=== PATIENT | male | born 1970 | race Caucasian/White ===

== ENCOUNTER 2016-11-17 21:12 | Emergency (ER) | payer SELFPAY ==
[~2016-11-17] VITALS: Ht 167.6 cm; Wt 72.0 kg
[2016-11-17 21:14] VITALS: BP 192/106; PULSE 81; RESP 16; TEMP 99.7; O2SAT 98
--- NOTE | 2016-11-17 21:34 | PD ---
HPI Chief Complaint: Cold / Flu Symptoms Time Seen by Provider: 21:20 Travel History International Travel<30 days: No Contact w/Intl Traveler<30days: No Traveled to known affect area: No History of Present Illness HPI This is a 46-year-old male who presents for evaluation of 3 separate complaints. For The past week he has had a cough with green sputum production. He's had occasional chills and subjective fevers. Symptoms are constant, no aggravating or relieving factors. In addition the patient has had left calf pain. 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 He now has left calf pain which is exacerbated by walking. In addition the patient complains of left ear pain and bloody discharge. He started having a pressure sensation in his left ear today. He put some [id number]-[id number] cleaning solution in his left ear and later in the day he noticed some bloody discharge from the left ear. He denies any tinnitus. He denies any sore throat, right ear discomfort. He has no other complaints at this time. [facility] Past Medical History Hypertension: Yes Inguinal Hernia: Yes Respiratory: Yes (pneumonia, bronchitis) Social History Alcohol Use: No (rarely) Tobacco Use: Yes (1ppd) Substance Use: No Allergies-Medications (Allergen,Severity, Reaction): Coded Allergies: No Known Allergies (Unverified , 11/17/16) Review of Systems Except as stated in HPI: all other systems reviewed are Neg Physical Exam Narrative GENERAL: This is a well-developed well-nourished male in no acute distress. His vital signs have been reviewed. SKIN: Warm and dry. HEAD: Atraumatic. Normocephalic. EYES: Pupils equal and round. No scleral icterus. No injection or drainage. ENT: No nasal bleeding or discharge. Mucous membranes pink and moist. Examination of left ear reveals some bloody fluid noted in the left ear canal. It is obscuring the view of the left tympanic membrane. Right tympanic membrane appears normal. NECK: Trachea midline. No JVD. CARDIOVASCULAR: Regular rate and rhythm. No murmur appreciated. RESPIRATORY: No accessory muscle use. Clear to auscultation. Breath sounds equal bilaterally. No crackles no wheezing or rhonchi. GASTROINTESTINAL: Abdomen soft, non-tender, nondistended. Hepatic and splenic margins not palpable. MUSCULOSKELETAL: No obvious deformities. There is some tenderness to palpation to left calf musculature. There is no bruising or soft tissue swelling. The Achilles tendon is intact and nontender. Negative Bhagat's. 5 out of 5 muscle strength in dorsi and plantar flexion. Compartments of left calf are soft. NEUROLOGICAL: Awake and alert. No obvious cranial nerve deficits. Motor grossly within normal limits. Normal speech. Data Data Last Documented VS Vital Signs Date Time Temp Pulse Resp B/P Pulse Ox O2 Delivery O2 Flow Rate FiO2 11/17/16 21:31 99 Room Air 11/17/16 21:14 99.7 81 16 192/106 Orders Chest, Single Ap (11/17/16 ) Influenzae A/B Antigen (11/17/16 21:29) MDM Medical Decision Making Medical Screen Exam Complete: Yes Emergency Medical Condition: Yes Medical Record Reviewed: Yes Interpretation(s) CONCLUSION: No acute abnormality is seen. There is a 1.6 cm nodule projecting over the left base. Differential Diagnosis Pneumonia, influenza, bronchitis, otitis media, perforated tympanic membrane, otitis externa, calf strain, calf tear, fibular fracture, Achilles tendon rupture Narrative Course 46-year-old male subjective fevers and productive cough for one week. He has had left calf pain after stepping awkwardly on a roof yesterday. He has had left ear bloody discharge for several hours. Examination is consistent with left calf strain with no evidence of Achilles tendon rupture or bony abnormality or compartment syndrome. He also has some bloody discharge in the left ear canal, obscuring the view of the left tympanic membrane, certainly suggestive of a left otitis media with spontaneous rupture. He does have a low- grade fever. Plan is for chest x-ray and influenza antigen. Influenza antigen is negative. Chest x-ray reveals a 1.6 cm nodule in the left base. The patient was given a copy of his x-ray report and advised to follow- up with primary care physician and have this monitored more closely, possibly outpatient CT imaging of the thorax as he does have a history of tobacco use. He is being discharged with Augmentin and ofloxacin otic solution. Diagnosis Primary Impression: Strain of calf muscle Qualified Code: S86.812A - Strain of calf muscle, left, initial encounter Additional Impressions: Left otitis media with spontaneous rupture of eardrum Bronchitis Additional Instructions: Medication as prescribed. Avoid getting water in left ear canal. Rest the left calf muscle. Ice pack several times a day 10-15 minutes at a time over the next few days. Follow-up in one to 2 weeks with primary care physician. Return for any emergent medical conditions. Med/Other Pt SpecificInfo: Prescription(s) given Scripts Ofloxacin Otic (Floxin Otic)0.3 % Sol10 Drop LEFT EAR DAILY 10 Days Ref 0 Prov:Rafi Raymond MD 11/17/16 Amoxicillin-Clavulanate (Augmentin)875-125 Mg Tab1 Tab PO BID 10 Days Ref 0 Prov:Rafi Raymond MD 11/17/16 Disposition: 01 DISCHARGE HOME Condition: Stable Michael Soler Nov 17, 2016 21:34
--- NOTE | 2016-11-17 22:20 | RADRPT ---
EXAM DATE/TIME: 11/17/2016 21:35 [facility] COMPARISON: No previous studies available for comparison. INDICATIONS : Complains of cough, fever, shortness of breath, blood in left ear. MEDICAL HISTORY : Hypertension. Pneumonia, bronchitis SURGICAL HISTORY : None. ENCOUNTER: Initial ACUITY: 1 week PAIN SCORE: 0/10 LOCATION: Bilateral chest FINDINGS: The heart size is normal. There is a 1.6 cm nodule projecting over the left base. The right lung is c lear. No effusion is seen. CONCLUSION: No acute abnormality is seen. There is a 1.6 cm nodule projecting over the left base. Silvestre White MD on November 17, 2016 at 22:16 Board Certified Radiologist. This report was verified electronically.
[2016-11-17] MEDS ORDERED: AUGM875T3 PO (22:24)
[2016-11-17] MEDS ORDERED: OFLO1SOL LEFT EAR (22:24)
== END 2016-11-17 23:01 | disposition home or self-care (01) ==
LOC: NEPC 21:12
DX: S86.812A Strain of other muscle(s) and tendon(s) at lower leg level, left leg, initial encounter (principal); H66.92 Otitis media, unspecified, left ear; I10 Essential (primary) hypertension; F17.210 Nicotine dependence, cigarettes, uncomplicated; X50.1XXA Overexertion from prolonged static or awkward postures, initial encounter; Y93.H3 Activity, building and construction; Y92.69 Other specified industrial and construction area as the place of occurrence of the external cause; Y99.0 Civilian activity done for income or pay
CPT/HCPCS: 71010; 87804; 99284

== ENCOUNTER 2017-03-09 10:49 | Emergency (ER) | payer OTHER ==
[~2017-03-09 10:49] MED LIST: AUGM875T3 PO; OFLO1SOL LEFT EAR
[2017-03-09 10:51] VITALS: BP 169/104; PULSE 101; RESP 17; TEMP 98.9; O2SAT 99
--- NOTE | 2017-03-09 11:21 | PD ---
HPI Chief Complaint: Skin Problem Time Seen by Provider: 11:12 Travel History International Travel<30 days: No Contact w/Intl Traveler<30days: No Traveled to known affect area: No History of Present Illness HPI 46-year-old male here for evaluation of possible abscess or retained foreign body in the right hand. 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 He denies fever or chills. He reports the swelling in the hand has actually improved since the event. He has full range of motion and normal sensation of all digits. Tetanus immunization is unknown. He reports only mild pain at the site. No alleviating factors. [facility] Past Medical History Medical History: Denies Significant Hx Hypertension: Yes Inguinal Hernia: Yes Respiratory: Yes (pneumonia, bronchitis) Tetanus Vaccination: > 5 Years Past Surgical History Other Surgery: Yes (r inguinal hernia surgery) Social History Alcohol Use: Yes (rarely) Tobacco Use: Yes (1ppd) Substance Use: No Allergies-Medications (Allergen,Severity, Reaction): Coded Allergies: No Known Allergies (Unverified , 11/17/16) Reported Meds & Prescriptions Reported Meds & Active Scripts Active Floxin Otic (Ofloxacin Otic) 0.3 % Erika 10 Drop LEFT EAR DAILY 10 Days Augmentin (Amoxicillin-Clavulanate) 875-125 Mg Tab 1 Tab PO BID 10 Days Review of Systems Except as stated in HPI: all other systems reviewed are Neg General / Constitutional: No: Fever Physical Exam Narrative GENERAL: Well-nourished, well-developed patient. SKIN: Focused skin assessment warm/dry. 1 cm diameter fluctuant area to the proximal/lateral aspect of the second digit. HEAD: Normocephalic. EYES: No scleral icterus. No injection or drainage. CARDIOVASCULAR: Regular rate and rhythm without murmurs, gallops, or rubs. RESPIRATORY: Breath sounds equal bilaterally. No accessory muscle use. MUSCULOSKELETAL: No cyanosis, or edema. Right hand: 1 cm diameter fluctuant area with central scab to the proximal/lateral aspect of the second digit. Mild swelling of the thumb and first digit. Patient is able to fully flex and extend all digits. Brisk cap refill. Data Data Last Documented VS Vital Signs Date Time Temp Pulse Resp B/P (MAP) Pulse Ox O2 Delivery O2 Flow Rate FiO2 03/09/17 10:51 98.9 101 17 169/104 (125) 99 Orders Orders Hand, Complete (Sar4cko) (03/09/17 ) Tetanus/Diphtheria Tox Adult (Tetanus/Di (03/09/17 11:30) Lidocaine 1% Inj (50 Ml) (Xylocaine 1% I (03/09/17 11:30) MDM Medical Decision Making Medical Screen Exam Complete: Yes Emergency Medical Condition: Yes Differential Diagnosis Abscess, cellulitis, retained foreign body Narrative Course 46-year-old male here for evaluation of abscess to the right second digit. Patient sustained a possible Holter injury or abrasion caused by metal delvis material 7 days ago. The area developed a central scab and has slowly increased in size and is tender to touch. He denies fever or chills. He has full range of motion of all digits. On exam he has a small 1 cm fluctuant area to the proximal second digit. X-ray right hand: Procedures Procedure Narrative INCISION AND DRAINAGE OF ABSCESS: The area was prepped and was sterilely draped. A subcutaneous wheal of 1% Xylocaine with a total number [-2] mL was used to anesthetize the area properly. A number 11scalpel was used to make a 0.5 -cm incision across the area of the abscess. The abscess was drained, complex loculations were broken down, and irrigated with normal saline. Cultures were obtained. Quarter inch iodoform packing was placed in the wound. Sterile dressing applied. Patient advised to have packing removed in two days. Diagnosis Primary Impression: Abscess Referrals: [facility] Scripts Cephalexin (Keflex) 500 Mg Cap 500 MG PO Q6H for Infection for 10 Days, #40 CAP 0 Refills Prov: Sherrill Ferguson 03/09/17 Sulfamethoxazole-Trimethoprim (Bactrim DS) 800-160 Mg Tab 1 TAB PO BID for Infection for 10 Days, #20 TAB 0 Refills Prov: Sherrill Ferguson 03/09/17 Disposition: 01 DISCHARGE HOME Condition: Stable Sherrill Ferguson Mar 09, 2017 11:21
[2017-03-09] MEDS ORDERED: LIDOCAINE HCL 1% 50 ML VIAL INFIL ONE (11:30)
[2017-03-09] MEDS ORDERED: TETANUS/DIPHTHERIA TOXOID ADULT 0.5 ML VIAL IM ONE (11:30)
--- NOTE | 2017-03-09 12:45 | RADRPT ---
EXAM DATE/TIME: 03/09/2017 11:53 [facility] COMPARISON: No previous studies available for comparison. INDICATIONS : Hurt right hand delvis 10 days ago, pain between 2nd and 3rd digits. MEDICAL HISTORY : None. SURGICAL HISTORY : None. ENCOUNTER: Initial ACUITY: 1 week PAIN SCORE: 9/10 LOCATION: Right hand FINDINGS: Three view examination of the right hand demonstrates no soft tissue swelling, dislocation, or fractu re. The carpal bones appear intact. The interphalangeal and metacarpophalangeal joints are intact. Bony mineralization is normal. CONCLUSION: No evidence of recent injury. No radiopaque foreign bodies seen. Quoc Sorto MD on March 09, 2017 at 12:42 Board Certified Radiologist. This report was verified electronically.
[2017-03-09] MEDS ORDERED: CEPH-460 PO (12:48)
[2017-03-09] MEDS ORDERED: BACT800T5 PO (12:48)
== END 2017-03-09 13:45 | disposition home or self-care (01) ==
LOC: NEPD 10:49
DX: L02.511 Cutaneous abscess of right hand (principal); Z23 Encounter for immunization; I10 Essential (primary) hypertension; Z87.891 Personal history of nicotine dependence
CPT/HCPCS: 10061; 73130; 90471; 90714

== ENCOUNTER 2017-03-11 08:15 | Inpatient (IN) | payer OTHER ==
[~2017-03-11] VITALS: Ht 172.7 cm; Wt 80.0 kg
[~2017-03-11 08:15] MED LIST changes: +BACT800T5 PO; +CEPH-460 PO
[2017-03-11 08:16] VITALS: BP 163/96; PULSE 86; RESP 16; TEMP 98.5; O2SAT 99
[2017-03-11] MEDS ORDERED: MORPHINE SULFATE 4 MG/ML INJ IV PUSH ONE (08:45)
[2017-03-11] MEDS ORDERED: VANCOMYCIN INJ 1,000 MG in SODIUM CHLOR 0.9% 250 ML INJ 250 ML IV ONE (08:45)
--- NOTE | 2017-03-11 08:45 | PD ---
HPI Chief Complaint: Skin Problem Time Seen by Provider: 08:30 Travel History International Travel<30 days: No Contact w/Intl Traveler<30days: No Traveled to known affect area: No History of Present Illness HPI This is a 46-year-old male with no significant past history, who seen here 2 days ago for a right hand infection, who presents today with worsening pain and swelling of his right hand. Patient was seen 2 days ago had an I and D of a small abscess on his right second volar finger. The patient reports increased swelling and pain since then. He denies any fevers, chills. He states she's been taking antibiotics. He reports now the pain is throbbing and keeping him up at night. PFSH Past Medical History Hypertension: Yes Inguinal Hernia: Yes Respiratory: Yes (pneumonia, bronchitis) Past Surgical History Other Surgery: Yes (r inguinal hernia surgery) Social History Alcohol Use: Yes (rarely) Tobacco Use: Yes (1ppd) Substance Use: No Allergies-Medications (Allergen,Severity, Reaction): Coded Allergies: No Known Allergies (Unverified , 11/17/16) Reported Meds & Prescriptions Reported Meds & Active Scripts Active Bactrim DS (Sulfamethoxazole-Trimethoprim) 800-160 Mg Tab 1 Tab PO BID 10 Days Review of Systems Except as stated in HPI: all other systems reviewed are Neg General / Constitutional: No: Fever, Chills HENT: No: Headaches, Vertigo Cardiovascular: No: Chest Pain or Discomfort, Palpitations Respiratory: No: Cough, Shortness of Breath Gastrointestinal: No: Nausea, Vomiting, Abdominal Pain Musculoskeletal: Positive: Limited ROM, Edema, Pain (right hand second and third finger), Other (redness) Neurologic: No: Weakness, Headache Physical Exam Narrative GENERAL: Well-nourished, well-developed patient. SKIN: Focused skin assessment warm/dry. HEAD: Normocephalic. EYES: No scleral icterus. No injection or drainage. NECK: Supple, trachea midline. CARDIOVASCULAR: Regular rate and rhythm without murmurs, gallops, or rubs. RESPIRATORY: Breath sounds equal bilaterally. No accessory muscle use. GASTROINTESTINAL: Abdomen soft, non-tender, nondistended. MUSCULOSKELETAL: On examination the patient's right hand, patient has significant edema and redness to his right second finger. There is also edema and redness to the lateral volar surface of the right third finger. There is no fluctuation noted. Limited range of motion secondary to pain. NEUROLOGICAL: Awake and alert. Cranial nerves II through XII intact. Motor grossly within normal limits. Five out of 5 muscle strength in all muscle groups. Normal speech. Data Data Last Documented VS Vital Signs Date Time Temp Pulse Resp B/P (MAP) Pulse Ox O2 Delivery O2 Flow Rate FiO2 03/11/17 08:16 98.5 86 16 163/96 (118) 99 Orders Orders Complete Blood Count With Diff (03/11/17 08:35) Basic Metabolic Panel (Bmp) (03/11/17 08:35) Blood Culture (03/11/17 08:35) Iv Access Insert/Monitor (03/11/17 08:35) Vancomycin Inj (Vancomycin Inj) (03/11/17 08:45) Morphine Inj (Morphine Inj) (03/11/17 08:45) Admit To Inpatient (03/11/17 ) Vital Signs (Adult) Q4H (03/11/17 09:14) Activity Oob With Assistance (03/11/17 09:14) Intake + Output SHAJI.QSHIFT (03/11/17 09:14) Diet Regular Basic (03/11/17 Breakfast) Sodium Chlor 0.9% 1000 Ml Inj (Ns 1000 M (03/11/17 11:00) Sodium Chloride 0.9% Flush (Ns Flush) (03/11/17 09:15) Sodium Chloride 0.9% Flush (Ns Flush) (03/11/17 21:00) Acetaminophen (Tylenol) (03/11/17 11:00) Ondansetron Inj (Zofran Inj) (03/11/17 11:00) Basic Metabolic Panel (Bmp) (03/12/17 06:00) Complete Blood Count With Diff (03/12/17 06:00) Case Management Consult (03/11/17 09:14) Zolpidem (Ambien) (03/11/17 11:00) Enoxaparin Inj (Lovenox Inj) (03/11/17 11:00) Scd Bilateral/Knee High SHAJI.BID (03/11/17 09:14) Toby Bilateral/Knee High SHAJI.QSHIFT (03/11/17 09:14) Naloxone Inj (Narcan Inj) (03/11/17 09:15) Docusate Sodium-Senna (Cate-Colace) (03/11/17 21:00) Magnesium Hydroxide Liq (Milk Of Magnesi (03/11/17 10:00) Sennosides (Senokot) (03/11/17 11:00) Bisacodyl Supp (Dulcolax Supp) (03/11/17 11:00) Lactulose Liq (Lactulose Liq) (03/11/17 11:00) Inpatient Certification (03/11/17 ) Acetamin-Hydrocod 325-5 Mg (Addison 5-325 (03/11/17 11:00) Acetamin-Hydrocod 325-10 Mg (Addison 10-32 (03/11/17 11:00) Hydromorphone Pf Inj (Dilaudid Pf Inj) (03/11/17 11:00) Naloxone Inj (Narcan Inj) (03/11/17 09:30) Consult Wound / Ostomy Nurse (03/11/17 ) Vancomycin Consult Pharmacy (Vancomycin (03/11/17 09:30) Admit Order (Ed Use Only) (03/11/17 10:14) Labs Laboratory Tests Test 03/11/17 08:45 03/11/17 10:00 White Blood Count 7.9 TH/MM3 Red Blood Count 5.17 MIL/MM3 Hemoglobin 16.2 GM/DL Hematocrit 46.6 % Mean Corpuscular Volume 90.1 FL Mean Corpuscular Hemoglobin 31.3 PG Mean Corpuscular Hemoglobin Concent 34.7 % Red Cell Distribution Width 13.8 % Platelet Count 183 TH/MM3 Mean Platelet Volume 9.8 FL Neutrophils (%) (Auto) 77.2 % Lymphocytes (%) (Auto) 13.9 % Monocytes (%) (Auto) 7.2 % Eosinophils (%) (Auto) 1.1 % Basophils (%) (Auto) 0.6 % Neutrophils # (Auto) 6.1 TH/MM3 Lymphocytes # (Auto) 1.1 TH/MM3 Monocytes # (Auto) 0.6 TH/MM3 Eosinophils # (Auto) 0.1 TH/MM3 Basophils # (Auto) 0.1 TH/MM3 CBC Comment DIFF FINAL Differential Comment Blood Urea Nitrogen 8 MG/DL Creatinine 1.03 MG/DL Random Glucose 89 MG/DL Calcium Level 8.4 MG/DL Sodium Level 136 MEQ/L Potassium Level 4.3 MEQ/L Chloride Level 105 MEQ/L Carbon Dioxide Level 25.1 MEQ/L Anion Gap 6 MEQ/L Estimat Glomerular Filtration Rate 78 ML/MIN MDM Medical Decision Making Medical Screen Exam Complete: Yes Emergency Medical Condition: Yes Differential Diagnosis Right hand cellulitis, failed outpatient antibiotics versus right hand abscess versus tenosynovitis Narrative Course Mr. Solis is a 46-year-old male who was seen earlier for a right hand infection. He had an abscess that was I and D. The patient was placed on antibiotics. He reports 2 days later after he has worsening pain and redness of his hand. Patient has obvious worsening cellulitis. His failed outpatient antibiotic. He 'll be admitted to the hospital for IVD antibiotics. He's been started on vancomycin 1 g. Blood cultures have been sent. Case was discussed with the [facility] hospitalists who are in agreement. He reports he received a tetanus shot on his last visit 2 days ago. Diagnosis Primary Impression: right hand infection, failed outpatient antibiotics. Admitting Information Admitting Physician Requests: Admit Scripts Oxycodone-Acetaminophen (Oxycodone-Acetaminophen) 5-325 mg Tab 1 TAB PO Q4H Y for Pain, #40 TAB Prov: Dionisio Lynn MD 03/14/17 Zolpidem (Ambien) 5 Mg Tab 5 MG PO HS Y for INSOMNIA, #10 TAB Prov: Dionisio Lynn MD 03/14/17 Lactobacillus Acidophilus (Lactobacillus Acidophilus) 1 Billion Cell Tab 1 TAB PO TIDAC for Nutritional Supplement, #30 TAB 0 Refills Prov: Dionisio Lynn MD 03/14/17 Nicolas Umanzor MD Mar 11, 2017 08:45
[2017-03-11] MEDS ORDERED: NALOXONE HCL 0.4 MG/ML AMP IV PUSH PRN ×2 (09:15→09:30)
[2017-03-11] MEDS ORDERED: SODIUM CHLORIDE 0.9% FLUSH 10 ML FLUSH IV FLUSH PRN (09:15)
[2017-03-11 09:19] LABS: AUTOMATED NEUTROPHIL # 6.1 TH/MM3 (1.8-7.7); BASOPHIL # 0.1 TH/MM3 (0-0.2); BASOPHIL % 0.6 % (0.0-2.0); EOSINOPHIL # 0.1 TH/MM3 (0-0.4); EOSINOPHIL % 1.1 % (0.0-4.0); HEMATOCRIT 46.6 % (39.0-51.0); HEMOGLOBIN 16.2 GM/DL (13.0-17.0); LYMPH % 13.9 % (9.0-44.0); LYMPHOCYTE # 1.1 TH/MM3 (1.0-4.8); MEAN CELL VOLUME 90.1 FL (80.0-100.0); MEAN CORPUSCULAR HEMOGLOBIN 31.3 PG (27.0-34.0); MEAN CORPUSCULAR HGB CONC 34.7 % (32.0-36.0); MEAN PLATELET VOLUME 9.8 FL (7.0-11.0); MONO % 7.2 % (0.0-8.0); MONOCYTE # 0.6 TH/MM3 (0-0.9); NEUT % 77.2 % (16.0-70.0); PLATELET COUNT 183 TH/MM3 (150-450); RED BLOOD COUNT 5.17 MIL/MM3 (4.50-5.90); RED CELL DISTRIBUTION WIDTH 13.8 % (11.6-17.2); WHITE BLOOD COUNT 7.9 TH/MM3 (4.0-11.0)
[2017-03-11] MEDS ORDERED: Vancomycin Consult Pharmacy 1 EA OTHER SCH (09:30)
[2017-03-11] MEDS ORDERED: VANCOMYCIN INJ 1,000 MG in SODIUM CHLOR 0.9% 250 ML INJ 250 ML IV SCH (09:30)
[2017-03-11] MEDS ORDERED: MAGNESIUM HYDROXIDE SUSP 30 ML CUP PO PRN (10:00)
--- NOTE | 2017-03-11 10:28 | HHI.HP ---
[facility] Primary [facility] Physician No Primary Care Physician Admission Diagnosis right hand cellulitis, failed outpatient antibiotics. Diagnoses: Travel History International Travel<30 Days: No Contact w/Intl Traveler <30 Da: No Traveled to Known Affected Are: No History of Present Illness 46 yo male with no significant past history, who was seen here 2 days ago for a right hand infection. The patient presented today with worsening pain and swelling of his right hand. Patient was seen 2 days ago had an I and D of a small abscess on his right second volar finger. The patient reports increased swelling and pain since then. He denies any fevers, chills. He states she's been taking antibiotics. He reports now the pain is throbbing and keeping him up at night. Patient otherwise denies chest pain or sob, no n/v/d/c. No palpitations. No urinary complaints. Review of Systems Except as stated in HPI: all other systems reviewed are Neg Past Family Social History Past Medical History None Past Surgical History Right inguinal hernia repair Reported Medications Reported Meds & Active Scripts Active Keflex (Cephalexin) 500 Mg Cap 500 Mg PO Q6H 10 Days Bactrim DS (Sulfamethoxazole-Trimethoprim) 800-160 Mg Tab 1 Tab PO BID 10 Days Allergies: Coded Allergies: No Known Allergies (Unverified , 11/17/16) Family History Mother HTN, DM, heart disease Social History Tobacco use 1 PPD EtOH use occasionally H/o Marijuana use and speed 1 year ago Physical Exam Vital Signs Vital Signs Date Time Temp Pulse Resp B/P (MAP) Pulse Ox O2 Delivery O2 Flow Rate FiO2 03/11/17 08:16 98.5 86 16 163/96 (118) 99 Physical Exam GENERAL: This is a well-nourished, well-developed patient, in no apparent distress. SKIN: No rashes, ecchymoses or lesions. Cool and dry. HEAD: Atraumatic. Normocephalic. No temporal or scalp tenderness. EYES: Pupils equal round and reactive. Extraocular motions intact. No scleral icterus. No injection or drainage. ENT: Nose without bleeding, purulent drainage or septal hematoma. Throat without erythema, tonsillar hypertrophy or exudate. Uvula midline. Airway patent. NECK: Trachea midline. No JVD or lymphadenopathy. Supple, nontender, no meningeal signs. CARDIOVASCULAR: Regular rate and rhythm without murmurs, gallops, or rubs. RESPIRATORY: Clear to auscultation. Breath sounds equal bilaterally. No wheezes , rales, or rhonchi. GASTROINTESTINAL: Abdomen soft, non-tender, nondistended. No hepato-splenomegaly , or palpable masses. No guarding. MUSCULOSKELETAL: Right hand, patient has significant edema and redness to his right second finger with edema and decreased ROM. There is also edema and redness to the lateral volar surface of the right third finger. There is no fluctuation noted. Limited range of motion secondary to pain. No calf tenderness. Negative Homans sign bilaterally. NEUROLOGICAL: Awake and alert. Cranial nerves II through XII intact. Motor and sensory grossly within normal limits. Five out of 5 muscle strength in all muscle groups. Normal speech. Laboratory Laboratory Tests Test 03/11/17 08:45 03/11/17 10:00 White Blood Count 7.9 Red Blood Count 5.17 Hemoglobin 16.2 Hematocrit 46.6 Mean Corpuscular Volume 90.1 Mean Corpuscular Hemoglobin 31.3 Mean Corpuscular Hemoglobin Concent 34.7 Red Cell Distribution Width 13.8 Platelet Count 183 Mean Platelet Volume 9.8 Neutrophils (%) (Auto) 77.2 Lymphocytes (%) (Auto) 13.9 Monocytes (%) (Auto) 7.2 Eosinophils (%) (Auto) 1.1 Basophils (%) (Auto) 0.6 Neutrophils # (Auto) 6.1 Lymphocytes # (Auto) 1.1 Monocytes # (Auto) 0.6 Eosinophils # (Auto) 0.1 Basophils # (Auto) 0.1 CBC Comment DIFF FINAL Differential Comment Date/Time Source Procedure Growth Status 03/11/17 08:45 Blood Peripheral Aerobic Blood Culture Pending Received 03/11/17 08:45 Blood Peripheral Anaerobic Blood Culture Pending Received Result Diagram: 03/11/1745 Caprini VTE Risk Assessment Caprini VTE Risk Assessment: Mod/High Risk (score >= 2) Caprini Risk Assessment Model Point Value = 1 Point Value = 2 Point Value = 3 Point Value = 5 Age 41-60 Minor surgery BMI > 25 kg/m2 Swollen legs Varicose veins or History of unexplained or recurrent spontaneous Oral contraceptives or hormone replacement Sepsis (< 1 month) Serious lung disease, including pneumonia (< 1 month) Abnormal pulmonary function Acute myocardial infarction Congestive heart failure (< 1 month) History of inflammatory bowel disease Medical patient at bed rest Age 61-74 Arthroscopic surgery Major open surgery (> 45 min) Laparoscopic surgery (> 45 min) Malignancy Confined to bed (> 72 hours) Immobilizing plaster cast Central venous access Age >= 75 History of VTE Family history of VTE Factor V Leiden Prothrombin [id number] Lupus anticoagulant Anticardiolipin antibodies Elevated serum homocysteine Heparin-induced thrombocytopenia Other congenital or acquired thrombophilia Stroke (< 1 month) Elective arthroplasty Hip, pelvis, or leg fracture Acute spinal cord injury (< 1 month) Prophylaxis Regimen Total Risk Factor Score Risk Level Prophylaxis Regimen 0-1 Low Early ambulation 2 Moderate Order ONE of the following: *Sequential Compression Device (SCD) *Heparin 5000 units SQ BID 3-4 Higher Order ONE of the following medications: *Heparin 5000 units SQ TID *Enoxaparin/Lovenox 40 mg SQ daily (WT < 150 kg, CrCl > 30 mL/min) *Enoxaparin/Lovenox 30 mg SQ daily (WT < 150 kg, CrCl > 10-29 mL/min) *Enoxaparin/Lovenox 30 mg SQ BID (WT < 150 kg, CrCl > 30 mL/min) AND/OR *Sequential Compression Device (SCD) 5 or more Highest Order ONE of the following medications: *Heparin 5000 units SQ TID (Preferred with Epidurals) *Enoxaparin/Lovenox 40 mg SQ daily (WT < 150 kg, CrCl > 30 mL/min) *Enoxaparin/Lovenox 30 mg SQ daily (WT < 150 kg, CrCl > 10-29 mL/min) *Enoxaparin/Lovenox 30 mg SQ BID (WT < 150 kg, CrCl > 30 mL/min) AND *Sequential Compression Device (SCD) Assessment and Plan Assessment and Plan Right hand cellulitis, failed outpatient antibiotics vs tenosynovitis Patient had I&D while in the ED, however no cultures taken Blood cx so far negative Failed OP treatment. Will give vancomycin IV bid, consult pharmacy to follow levels Will ask hand surgeon for eval as patient with decreased rom and also pain DVT ppx lovenox, scd/teds Discussed Condition With Patient, nurse, ED physician Dr Umanzor Physician Certification 2 Midnight Certification Type: Admission for Inpatient Services Order for Inpatient Services The services are ordered in accordance with Medicare regulations or non- Medicare payer requirements, as applicable. In the case of services not specified as inpatient-only, they are appropriately provided as inpatient services in accordance with the 2-midnight benchmark. Estimated LOS (days): 3 days is the estimated time the patient will need to remain in the hospital, assuming treatment plan goals are met and no additional complications. Post-Hospital Plan: Home Heather Sena MD Mar 11, 2017 10:28
[2017-03-11 10:50] LABS: BICARBONATE 25.1 MEQ/L (21.0-32.0); CALCIUM 8.4 MG/DL (8.5-10.1); CREATININE 1.03 MG/DL (0.60-1.30)
[2017-03-11 11:00] VITALS: BP 141/91; PULSE 73; RESP 17; O2SAT 96
[2017-03-11] MEDS ORDERED: ONDANSETRON HCL 4 MG/2 ML VIAL IVP PRN (11:00)
[2017-03-11] MEDS ORDERED: SENNOSIDES 8.6 MG TAB PO PRN (11:00)
[2017-03-11] MEDS ORDERED: LACTULOSE SYRUP 20 GM/30 ML CUP PO PRN (11:00)
[2017-03-11] MEDS ORDERED: ACETAMINOPHEN/HYDROcodone 325 MG/5 MG TAB PO PRN (11:00)
[2017-03-11] MEDS ORDERED: ACETAMINOPHEN 325 MG TAB PO PRN (11:00)
[2017-03-11] MEDS ORDERED: BISACODYL 10 MG SUPP RECTAL PRN (11:00)
[2017-03-11] MEDS ORDERED: ZOLPIDEM TARTRATE 5 MG TAB PO PRN (11:00)
[2017-03-11] MEDS: ENOXAPARIN SODIUM 40 MG/0.4 ML SYRINGE SQ SCH (11:30)
[2017-03-11] MEDS: HYDROmorphone HCL PF 1 MG/ML VIAL IV PUSH PRN ×2 (11:30→17:25)
[2017-03-11] MEDS: SODIUM CHLOR 0.9% 1000 ML INJ 1,000 ML IV SCH ×2 (11:30→21:36)
[2017-03-11] MEDS ORDERED: MIDAZOLAM HCL 2 MG/2 ML VIAL IV ONE (13:25)
[2017-03-11] MEDS ORDERED: DEXAMETHASONE SOD PHOS 4 MG/ML VIAL IV ONE (13:25)
[2017-03-11] MEDS ORDERED: ONDANSETRON HCL 4 MG/2 ML VIAL IV PUSH ONE (13:25)
[2017-03-11] MEDS ORDERED: PROPOFOL 200 MG/20 ML AMP IV ONE (13:25)
[2017-03-11] MEDS ORDERED: LIDOCAINE HCL 1% PF 5 ML AMPULE OTHER ONE (13:25)
[2017-03-11] MEDS ORDERED: SUCCINYLCHOLINE CHLORIDE 100 MG/5 ML SYRINGE IV PUSH ONE (13:25)
[2017-03-11 14:38] VITALS: BP 135/81; PULSE 72; RESP 16; O2SAT 98
[2017-03-11] MEDS: ACETAMINOPHEN/HYDROcodone 325 MG/10 MG TAB PO PRN ×2 (14:43→21:32)
[2017-03-11 15:05] VITALS: BP 164/87; PULSE 69; RESP 19; TEMP 98.3; O2SAT 97
[2017-03-11 17:25] VITALS: BP 167/96; PULSE 69; RESP 18; TEMP 98.4; O2SAT 96
[2017-03-11] MEDS ORDERED: ACETAMINOPHEN 1000 MG/100 ML 100 ML IV ONE (17:28)
[2017-03-11] MEDS ORDERED: NICOTINE 21 MG/24 HR PATCH T-DERMAL ONE (17:30)
[2017-03-11] MEDS ORDERED: BUPIVACAINE HCL PF 0.5% 30 ML VIAL ONE (17:31)
[2017-03-11] MEDS ORDERED: LIDOCAINE HCL 2% 50 ML VIAL ONE (17:31)
[2017-03-11] MEDS ORDERED: PANTOPRAZOLE SODIUM 40 MG VIAL ONE (17:45)
[2017-03-11] MEDS: VANCOMYCIN INJ 1,250 MG in SODIUM CHLOR 0.9% 250 ML INJ 250 ML IV SCH (17:55)
[2017-03-11] MEDS ORDERED: *HYDROmorphone PF 1 MG VIAL PERIprocedural Use ONLY ONE ×2 (18:45→18:58)
[2017-03-11] MEDS ORDERED: *ENALAPRILAT 1.25 MG/ML VIAL PERIprocedural Use ONLY ONE (19:15)
[2017-03-11] MEDS ORDERED: DO NOT ADM ANY ANTICOAGULANT DRUGS PRN (19:30)
--- NOTE | 2017-03-11 19:33 | MB ---
cc: CURLY BOLAND III, M.D. DATE OF CONSULTATION 03/11/2017 HISTORY OF PRESENT ILLNESS The patient is a 46-year-old male just admitted through the emergency room who was seen here 2 days ago for a limited I&D of the small abscess on his right second finger which worsened and he came back today. PAST MEDICAL HISTORY Hypertension. PAST SURGICAL HISTORY Inguinal hernia repair. SOCIAL HISTORY Occasional alcohol use. He smokes one-pack per day. ALLERGIES No known drug allergies. MEDICATIONS 1. Keflex. 2. Bactrim. 3. Augmentin. REVIEW OF SYSTEMS The patient is not complaining of any headaches, double or blurry vision. He is not complaining of any coughing, wheezing or shortness of breath. He is not complaining of any chest pain or palpitations. He is not complaining of any nausea, vomiting, abdominal pain. He is not complaining of any burning, frequency or urgency with urination. He is not complaining of any weakness or headaches. He is not complaining of any spine, neck or back pain. He is not complaining of any night sweats, fevers or chills. He is not complaining of any lesions, rashes or eruptions on his skin except for on his fingers on his right hand. LABORATORY FINDINGS Labs were performed. White blood cell count 7.9 thousand, hemoglobin 16.2 gm/dl, platelet count 183,000. He did not have cultures done the other day when the I&D was performed, apparently. PHYSICAL EXAMINATION GENERAL: He is well-developed, well-nourished, no apparent distress. Patient is awake, alert, oriented x3. He is in no apparent distress. He is very pleasant, lying comfortably in his bed. VITAL SIGNS: Temperature is 98.3, blood pressure 164/87, heart rate 69, respiratory rate 19, pulse ox 97% on room air. DIRECTED EXAMINATION: Examination of the right hand reveals full active range of motion with the exception of the index and middle fingers. The index finger has an obvious abscess in the proximal phalanx radial side with an eschar from the previous I&D. The middle finger has a smaller abscess distally also on the radial side with a small pustule forming. All musculotendinous units appear to be intact. The capillary refill is less than 2 seconds on all fingertips. The fingers and __, and the forearm and arm are all soft. Palpable radial pulse. No epitrochlear or axillary adenopathy palpable. IMPRESSION Right index and middle finger abscesses. PLAN The plan is to go to the operating room tonight for incision and drainage of abscesses in the index and middle fingers. The patient understands he ___ open wound and he agrees and requests to proceed. MD JARAD Valentin III/INA /5:03 PM /7:13 PM
[2017-03-11 20:00] VITALS: BP 171/92; PULSE 72; RESP 20; TEMP 97.5; O2SAT 95
[2017-03-11] MEDS: SODIUM CHLORIDE 0.9% FLUSH 10 ML FLUSH IV FLUSH SCH (21:30)
[2017-03-11] MEDS: DOCUSATE SODIUM 50 MG/SENNA 8.6 MG TAB PO SCH (21:32)
[2017-03-12] VITALS (8 sets, daily range): BP systolic 146–163; BP diastolic 81–91; PULSE 64–81; RESP 18–20; TEMP 96.9–98.3; O2SAT 95–96
[2017-03-12] MEDS: HYDROmorphone HCL PF 1 MG/ML VIAL IV PUSH PRN ×4 (00:51→20:37)
[2017-03-12] MEDS: VANCOMYCIN INJ 1,250 MG in SODIUM CHLOR 0.9% 250 ML INJ 250 ML IV SCH ×2 (05:54→17:40)
[2017-03-12] MEDS: SODIUM CHLOR 0.9% 1000 ML INJ 1,000 ML IV SCH ×3 (05:54→20:39)
[2017-03-12 05:56] LABS: AUTOMATED NEUTROPHIL # 8.4 TH/MM3 (1.8-7.7); BASOPHIL % 0.2 % (0.0-2.0); HEMOGLOBIN 15.1 GM/DL (13.0-17.0); LYMPH % 8.4 % (9.0-44.0); LYMPHOCYTE # 0.8 TH/MM3 (1.0-4.8); MEAN CELL VOLUME 90.4 FL (80.0-100.0); MEAN CORPUSCULAR HEMOGLOBIN 31.1 PG (27.0-34.0); MEAN CORPUSCULAR HGB CONC 34.4 % (32.0-36.0); MEAN PLATELET VOLUME 10.3 FL (7.0-11.0); MONO % 2.4 % (0.0-8.0); MONOCYTE # 0.2 TH/MM3 (0-0.9); PLATELET COUNT 183 TH/MM3 (150-450); RED BLOOD COUNT 4.87 MIL/MM3 (4.50-5.90); RED CELL DISTRIBUTION WIDTH 13.6 % (11.6-17.2); WHITE BLOOD COUNT 9.5 TH/MM3 (4.0-11.0)
[2017-03-12 06:23] LABS: BICARBONATE 23.4 MEQ/L (21.0-32.0); CALCIUM 9.1 MG/DL (8.5-10.1); CREATININE 0.85 MG/DL (0.60-1.30)
[2017-03-12] MEDS: ACETAMINOPHEN/HYDROcodone 325 MG/10 MG TAB PO PRN (06:51)
--- NOTE | 2017-03-12 08:44 | PD.WCN.NOT ---
Wound Consult Additional Information: Patient not seen for wound management to R hand. Doctor Rosemarie, Hand surgeon performed I&D of abscess wounds to R hand and has written dressing orders.Please defer to Hand surgeon for additional orders.Inpatient wound care is signing off. Elinor Spicer [facility] Mar 12, 2017 08:44
--- NOTE | 2017-03-12 08:44 | PD.WCN.NOT ---
Wound Consult Additional Information: Patient not seen for wound management to R hand. Doctor Rosemarie, Hand surgeon performed I&D of abscess wounds to R hand and has written dressing orders.Please defer to Hand surgeon for additional orders.Inpatient wound care is signing off. Elinor Spicer [facility] Mar 12, 2017 08:44
--- NOTE | 2017-03-12 08:44 | PD.WCN.NOT ---
Wound Consult Additional Information: Patient not seen for wound management to R hand. Doctor Rosemarie, Hand surgeon performed I&D of abscess wounds to R hand and has written dressing orders.Please defer to Hand surgeon for additional orders.Inpatient wound care is signing off. [facility] Mar 12, 2017 08:44
[2017-03-12] MEDS: REMOVE OLD PATCH T-DERMAL SCH (09:00)
[2017-03-12] MEDS: SODIUM CHLORIDE 0.9% FLUSH 10 ML FLUSH IV FLUSH SCH ×2 (09:00→20:38)
--- NOTE | 2017-03-12 09:27 | MP ---
cc: SEBAS HOUSTON III, M.D. DATE OF SURGERY 03/11/2017 PREOPERATIVE DIAGNOSIS Right index and middle finger abscesses deep. PROCEDURE 1. Right index finger incision and drainage. 2. Right middle finger incision and drainage. SURGEON Sebas Houston III, MD PROCEDURE NOTE The patient was brought to the operating room, placed supine on the operating table. After the correct site and side of surgery were verified by members of each team in the room multiple times including the patient and myself and after preoperative markings and preoperative written consent were verified by everyone and after adequate preoperative time-out was performed to everyone's satisfaction and after adequate general anesthesia had been achieved, the right upper extremity was prepped and draped in the traditional sterile surgical fashion. A 50/50 mixture of 2% plain lidocaine and 0.5% plain Marcaine was infiltrated at the metacarpal level to provide for index and middle finger radial sided digital blocks. The limb was elevated and pressure was held on the brachial artery for a minute and the highly placed well-padded axillary tourniquet was inflated to 200 mmHg for a total of 7 minutes. The eschar on the index finger was debrided and probed and a large amount of purulent fluid erupted. An incision in the skin was then made in a Cris fashion over to the opposite side of the fingers on the volar surface and the abscess cavity was entered. It was superficial to the neurovascular bundles as well as the flexor tendon sheath. It did extend 3 mm proximal to the MCP flexion crease. The infected and necrotic tissue was debrided sharply and all the extent of the abscess cavity was probed in all directions. Thorough irrigation with a liters worth of antiseptic saline was then used and all tissues were cleaned and viable without any grossly infected or necrotic tissue. Attention was then paid to the middle finger where a small pustule erupting was probed and found to track almost a centimeter across the finger at the middle phalangeal level. A small 1 cm incision was made to enhance exposure and this cavity was probed and then a separate culture was obtained, as well and the necrotic soft tissue was sharply debrided. The wounds were thoroughly irrigated and a one-quarter inch of Iodoform packing was applied. The axillary tourniquet was released and the hand and all the fingers including the index, middle fingers became immediately soft, pink, and warm and had brisk capillary refill of less than two seconds. There was no active bleeding. A bulky soft dressing was applied. The patient was awakened from anesthesia and transported to the Post Anesthesia Care Unit awake and in stable condition at the end of the case. The sponge, needle and instrument counts were correct at the end of the case as reported by nurses in the room. MD JARAD Valentin III/RAFAEL /6:42 PM /9:12 AM
[2017-03-12] MEDS: DOCUSATE SODIUM 50 MG/SENNA 8.6 MG TAB PO SCH ×2 (09:56→20:37)
[2017-03-12] MEDS: NICOTINE 21 MG/24 HR PATCH T-DERMAL SCH (09:56)
[2017-03-12] MEDS ORDERED: PNEUMOCOCCAL POLYVALENT INJ 25 MCG/0.5 ML SYR IM ONE (10:00)
[2017-03-12] MEDS ORDERED: INFLUENZA VIRUS VACCINE (QUADRIVALENT) 0.5 ML SYR IM ONE (10:00)
[2017-03-12] MEDS ORDERED: oxyCODONE/ACETAMINOPHEN 5 MG/325 MG TAB PO PRN (10:00)
[2017-03-12] MEDS: ENOXAPARIN SODIUM 40 MG/0.4 ML SYRINGE SQ SCH (10:27)
[2017-03-12] MEDS: oxyCODONE/ACETAMINOPHEN 10 MG/325 MG TAB PO PRN ×3 (12:05→21:47)
--- NOTE | 2017-03-12 13:28 | HHI.PR ---
Subjective Remarks Pain control with [place]. Cultures have resulted staph aureus thus far. Patient is status post incision, drainage, and debridement of hand abscess yesterday. Objective Vital Signs Date Time Temp Pulse Resp B/P (MAP) Pulse Ox O2 Delivery O2 Flow Rate FiO2 03/12/17 08:00 96.9 81 18 163/91 (115) 96 03/12/17 07:15 95 21 03/12/17 04:00 96.9 64 20 147/86 (106) 96 03/12/17 00:00 98.2 74 20 146/82 (103) 96 03/11/17 20:00 97.5 72 20 171/92 (118) 95 03/11/17 19:40 66 14 177/88 (117) 95 Room Air 03/11/17 19:30 60 14 190/107 (134) 97 Room Air 03/11/17 19:28 16 03/11/17 19:15 60 14 189/108 (135) 96 Room Air 03/11/17 19:15 16 03/11/17 19:00 68 14 172/106 (128) 97 Room Air 03/11/17 18:43 98.8 72 14 175/88 (117) 100 Nasal Cannula 2 03/11/17 17:25 98.4 69 18 167/96 (119) 96 03/11/17 15:05 98.3 69 19 164/87 (112) 97 03/11/17 14:38 72 16 135/81 (99) 98 Room Air I/O 03/11/17 03/11/17 03/11/17 03/12/17 03/12/17 03/12/17 07:00 15:00 23:00 07:00 15:00 23:00 Intake Total 250 ml 1240 ml 1000 ml 639 ml Output Total 855 ml Balance 250 ml 385 ml 1000 ml 639 ml Intake Oral 240 ml 120 ml IV Total 250 ml 1000 ml 519 ml Other 1000 ml Output Urine Total 850 ml Estimated Blood Loss 5 ml # Voids 3 Result Diagram: 03/12/1731 03/12/1732 Objective Remarks GENERAL: NAD, A&Ox3 HEAD: Normocephalic. NECK: Supple, trachea midline. No lymphadenopathy. EYES: No scleral icterus. No injection or drainage. CARDIOVASCULAR: Regular rate and rhythm without murmurs, gallops, or rubs. RESPIRATORY: Breath sounds equal bilaterally. No accessory muscle use. GASTROINTESTINAL: Abdomen soft, non-tender, nondistended. MUSCULOSKELETAL: No cyanosis, or edema. Right hand is bandaged and elevated SKIN: Warm and dry. NEURO: No focal neurological deficitis. A/P Problem List: (1) Abscess of right hand ICD Code: L02.511 - Cutaneous abscess of right hand Assessment and Plan Assessment and Plan 46-year-old male admitted secondary to right hand infection Right hand cellulitis Right hand abscess tenosynovitis failed outpatient antibiotics Continue vancomycin And surgeon following Blood cultures are growing staph aureus When necessary Percocet for pain DVT prophylaxis Lovenox and SCDs Dionisio Lynn MD Mar 12, 2017 13:28
--- NOTE | 2017-03-12 16:17 | HHI.PR ---
Subjective Remarks No new complaints. He started the dressing changes today with the packing changes as well by the nurse Objective Vital Signs Date Time Temp Pulse Resp B/P (MAP) Pulse Ox O2 Delivery O2 Flow Rate FiO2 03/12/17 12:00 97.3 74 18 152/81 (104) 95 03/12/17 08:00 96.9 81 18 163/91 (115) 96 03/12/17 07:15 95 21 03/12/17 04:00 96.9 64 20 147/86 (106) 96 03/12/17 00:00 98.2 74 20 146/82 (103) 96 03/11/17 20:00 97.5 72 20 171/92 (118) 95 03/11/17 19:40 66 14 177/88 (117) 95 Room Air 03/11/17 19:30 60 14 190/107 (134) 97 Room Air 03/11/17 19:28 16 03/11/17 19:15 60 14 189/108 (135) 96 Room Air 03/11/17 19:15 16 03/11/17 19:00 68 14 172/106 (128) 97 Room Air 03/11/17 18:43 98.8 72 14 175/88 (117) 100 Nasal Cannula 2 03/11/17 17:25 98.4 69 18 167/96 (119) 96 I/O 03/11/17 03/11/17 03/11/17 03/12/17 03/12/17 03/12/17 07:00 15:00 23:00 07:00 15:00 23:00 Intake Total 250 ml 1240 ml 1000 ml 639 ml Output Total 855 ml Balance 250 ml 385 ml 1000 ml 639 ml Intake Oral 240 ml 120 ml IV Total 250 ml 1000 ml 519 ml Other 1000 ml Output Urine Total 850 ml Estimated Blood Loss 5 ml # Voids 3 Result Diagram: 03/12/17 0531 03/12/17 0532 Objective Remarks Examination right third and fourth fingers reveals much less swelling and edema redness. No fluctuance. Almost full active range of motion. No further drainage. Capillary refills less than 2 seconds in all fingertips Assessment and Plan Problem List: (1) Abscess of right hand ICD Codes: L02.511 - Cutaneous abscess of right hand Plan: Begin 3 times a day dressing and packing changes, already in place Okay for discharge from my standpoint. I will follow-up on the cultures. He can follow-up with me or his primary doctor and weeks. Okay to wash and dry his hands with soap and water or take a shower. Sebas Houston III, MD Mar 12, 2017 16:17
[2017-03-13] VITALS (7 sets, daily range): BP systolic 141–162; BP diastolic 81–96; PULSE 69–88; RESP 16–25; TEMP 98.2–99.1; O2SAT 93–98
[2017-03-13] MEDS: HYDROmorphone HCL PF 1 MG/ML VIAL IV PUSH PRN ×5 (01:05→20:20)
[2017-03-13] MEDS: oxyCODONE/ACETAMINOPHEN 10 MG/325 MG TAB PO PRN ×4 (04:22→18:38)
[2017-03-13] MEDS ORDERED: PHARMACY ORDERED LAB ONE (05:45)
[2017-03-13] MEDS: VANCOMYCIN INJ 1,250 MG in SODIUM CHLOR 0.9% 250 ML INJ 250 ML IV SCH ×2 (07:29→17:40)
[2017-03-13] MEDS: DOCUSATE SODIUM 50 MG/SENNA 8.6 MG TAB PO SCH ×2 (07:59→20:19)
[2017-03-13] MEDS: NICOTINE 21 MG/24 HR PATCH T-DERMAL SCH (07:59)
[2017-03-13] MEDS: REMOVE OLD PATCH T-DERMAL SCH (08:00)
[2017-03-13] MEDS: SODIUM CHLORIDE 0.9% FLUSH 10 ML FLUSH IV FLUSH SCH ×2 (08:00→20:04)
[2017-03-13] MEDS: ENOXAPARIN SODIUM 40 MG/0.4 ML SYRINGE SQ SCH (09:59)
[2017-03-13] MEDS: SODIUM CHLOR 0.9% 1000 ML INJ 1,000 ML IV SCH (13:00)
--- NOTE | 2017-03-13 14:34 | HHI.PR ---
Subjective Remarks Pain control not yet adequate. Patient needing breakthrough IV treatments for pain control. He states today that he would be unable to do the dressing changes himself due to pain. Objective Vital Signs Date Time Temp Pulse Resp B/P (MAP) Pulse Ox O2 Delivery O2 Flow Rate FiO2 03/13/17 12:00 98.2 74 17 150/95 (113) 98 03/13/17 08:00 98.9 75 16 148/88 (108) 93 03/13/17 04:00 98.5 80 20 141/81 (101) 96 03/13/17 00:00 98.3 69 20 162/94 (116) 98 03/12/17 20:00 98.3 74 20 161/87 (111) 96 03/12/17 18:01 95 21 03/12/17 16:00 97.5 81 19 159/87 (111) 95 I/O 03/12/17 03/12/17 03/12/17 03/13/17 03/13/17 03/13/17 07:00 15:00 23:00 07:00 15:00 23:00 Intake Total 1000 ml 639 ml 1300 ml 1176 ml Output Total 1200 ml Balance 1000 ml 639 ml 100 ml 1176 ml Intake Oral 120 ml 1300 ml 240 ml IV Total 1000 ml 519 ml 936 ml Output Urine Total 1200 ml # Voids 3 3 # Bowel Movements 1 Result Diagram: 03/12/17 0531 03/12/17 0532 Objective Remarks GENERAL: NAD, A&Ox3 HEAD: Normocephalic. NECK: Supple, trachea midline. No lymphadenopathy. EYES: No scleral icterus. No injection or drainage. CARDIOVASCULAR: Regular rate and rhythm without murmurs, gallops, or rubs. RESPIRATORY: Breath sounds equal bilaterally. No accessory muscle use. GASTROINTESTINAL: Abdomen soft, non-tender, nondistended. MUSCULOSKELETAL: No cyanosis, or edema. Right hand is bandaged and elevated SKIN: Warm and dry. NEURO: No focal neurological deficitis. A/P Problem List: (1) Abscess of right hand ICD Code: L02.511 - Cutaneous abscess of right hand Assessment and Plan Assessment and Plan 46-year-old male admitted secondary to right hand infection. Monitor for improved pain control on by mouth Percocet. Arranging home health for dressing changes and packing. Plan for discharge tomorrow. Right hand cellulitis Right hand abscess tenosynovitis failed outpatient antibiotics Continue vancomycin And surgeon following Blood cultures are growing staph aureus When necessary Percocet for pain DVT prophylaxis Lovedarbyx and EMILYs Dionisio Lynn MD Mar 13, 2017 14:34
[2017-03-14] VITALS: BP 143/75; PULSE 67; RESP 21; TEMP 98.7; O2SAT 96
[2017-03-14] MEDS: SODIUM CHLOR 0.9% 1000 ML INJ 1,000 ML IV SCH ×2 (00:12→09:00)
[2017-03-14] MEDS: HYDROmorphone HCL PF 1 MG/ML VIAL IV PUSH PRN ×2 (00:13→05:01)
[2017-03-14] MEDS: oxyCODONE/ACETAMINOPHEN 10 MG/325 MG TAB PO PRN ×3 (03:40→13:14)
[2017-03-14] MEDS: VANCOMYCIN INJ 1,250 MG in SODIUM CHLOR 0.9% 250 ML INJ 250 ML IV SCH (04:59)
[2017-03-14 08:00] VITALS: BP 141/83; PULSE 69; RESP 16; TEMP 97.2; O2SAT 95
[2017-03-14] MEDS: REMOVE OLD PATCH T-DERMAL SCH (09:00)
[2017-03-14] MEDS: DOCUSATE SODIUM 50 MG/SENNA 8.6 MG TAB PO SCH (09:16)
[2017-03-14] MEDS: NICOTINE 21 MG/24 HR PATCH T-DERMAL SCH (09:17)
[2017-03-14] MEDS: SODIUM CHLORIDE 0.9% FLUSH 10 ML FLUSH IV FLUSH SCH (09:17)
[2017-03-14] MEDS: ENOXAPARIN SODIUM 40 MG/0.4 ML SYRINGE SQ SCH (09:17)
[2017-03-14] MEDS ORDERED: AMBI5TAB PO (11:58)
[2017-03-14] MEDS ORDERED: OXYC1TAB63 PO (11:58)
[2017-03-14] MEDS ORDERED: LACTTAB8 PO (11:58)
[2017-03-14 12:00] VITALS: BP 139/87; PULSE 81; RESP 18; TEMP 98.4; O2SAT 96
--- NOTE | 2017-03-14 12:05 | HHI.FF ---
Face to Face Verification Diagnosis: (1) Abscess of right hand Home Health Nursing Order: Wound care and dressing changes Instructions: Wound evaluation and witnessed dressing change (patient instructed and able to change dressings himself, TID) I have seen patient Alan Acevedo Solis on 03/14/17. My clinical findings support the need for the requested home health care services because: Infection w/ risk of complications I certify that my clinical findings support that this patient is homebound because: Unable to use public transportation Dionisio Lynn MD Mar 14, 2017 12:05
--- NOTE | 2017-03-14 12:46 | HHI.DS ---
Discharge Summary Admission Date Mar 11, 2017 at 10:18 Discharge Date: Mar 14, 2017 Admitting Diagnosis right hand cellulitis, failed outpatient antibiotics. (1) Abscess of right hand ICD Code: L02.511 - Cutaneous abscess of right hand Procedures Incision, drainage, and debridement of right hand abscess Brief History - From Admission 46 yo male with no significant past history, who was seen here 2 days ago for a right hand infection. The patient presented today with worsening pain and swelling of his right hand. Patient was seen 2 days ago had an I and D of a small abscess on his right second volar finger. The patient reports increased swelling and pain since then. He denies any fevers, chills. He states she's been taking antibiotics. He reports now the pain is throbbing and keeping him up at night. Patient otherwise denies chest pain or sob, no n/v/d/c. No palpitations. No urinary complaints. CBC/BMP: 03/12/17 0531 03/12/17 0532 Significant Findings Laboratory Tests Test 03/12/17 05:31 03/12/17 05:32 03/13/17 06:25 Neutrophils (%) (Auto) 89.0 % (16.0-70.0) Lymphocytes (%) (Auto) 8.4 % (9.0-44.0) Neutrophils # (Auto) 8.4 TH/MM3 (1.8-7.7) Lymphocytes # (Auto) 0.8 TH/MM3 (1.0-4.8) Random Glucose 126 MG/DL (74-106) Sodium Level 135 MEQ/L (136-145) Vancomycin Level Trough 11.9 MCG/ML (5.0-10.0) Hospital Course Mr. Solis is a 46-year-old male. He was admitted secondary to right hand abscess. This wasn't present in outpatient treatment failure. Failure appears to be related to abscess hand rather than resistance as cultures have grown Bactrim sensitive staph aureus. He had previously been on Bactrim and Keflex. He is now post op and able to do his own dressing changes. Final cultures have resulted. Medically stable for discharge to home with home health to assist in dressing changes. Discharge home today. Pt Condition on Discharge: Stable Discharge Disposition: Disch w/ Home Health Serv Discharge Time: <= 30 minutes Discharge Instructions DIET: Follow Instructions for: As Tolerated, No Restrictions Activities you can perform: Regular-No Restrictions Follow up Referrals: Hand Surgery - 1 Week with Sebas Houston III, MD PCP Follow-up - 1 Week New Medications: Lactobacillus Acidophilus (Lactobacillus Acidophilus) 1 Billion Cell Tab 1 TAB PO TIDAC for Nutritional Supplement, #30 TAB 0 Refills Oxycodone-Acetaminophen (Oxycodone-Acetaminophen) 5-325 mg Tab 1 TAB PO Q4H PRN for Pain, #40 TAB Zolpidem (Ambien) 5 Mg Tab 5 MG PO HS PRN for INSOMNIA, #10 TAB Continued Medications: Sulfamethoxazole-Trimethoprim (Bactrim DS) 800-160 Mg Tab 1 TAB PO BID for Infection for 10 Days, #20 TAB 0 Refills Discontinued Medications: Cephalexin (Keflex) 500 Mg Cap 500 MG PO Q6H for Infection for 10 Days, #40 CAP 0 Refills Dionisio Lynn MD Mar 14, 2017 12:46
== END 2017-03-14 14:49 | disposition home or self-care (01) | DRG 603 ==
LOC: NEPE 08:15 → NEDA 10:18 → N07A 15:03
PROVIDERS: ADMIT Hospitalist; ATTEND Hospitalist
PROC: 3E0T3BZ Introduction of Anesthetic Agent into Peripheral Nerves and Plexi, Percutaneous Approach (ICD-10-PCS; 2017-03-11)
PROC: 3E0T3BZ Introduction of Anesthetic Agent into Peripheral Nerves and Plexi, Percutaneous Approach (ICD-10-PCS; 2017-03-11)
PROC: 0HDFXZZ Extraction of Right Hand Skin, External Approach (ICD-10-PCS; 2017-03-11)
PROC: 0H9FXZX Drainage of Right Hand Skin, External Approach, Diagnostic (ICD-10-PCS; principal; 2017-03-11 17:25)
DX: L02.511 Cutaneous abscess of right hand (principal); I10 Essential (primary) hypertension; L03.113 Cellulitis of right upper limb; F17.210 Nicotine dependence, cigarettes, uncomplicated; M65.9 Synovitis and tenosynovitis, unspecified
CPT/HCPCS: 80048; 80202; 85025; 86403; 87015; 87040; 87070; 87102; 87116; 87147; 87186; 87205; 87206; 90686; 90732; 96365; 96375; C9113; J0131; J0330; J1100; J1170; J1650; J2250; J2270; J2405; J3010; J3370; J7030; J7050; Q2038

== ENCOUNTER 2017-04-21 15:32 | Emergency (ER) | payer OTHER ==
[~2017-04-21] VITALS: Ht 172.7 cm; Wt 77.3 kg
[~2017-04-21 15:32] MED LIST changes: -AUGM875T3 PO; -BACT800T5 PO; -CEPH-460 PO; -OFLO1SOL LEFT EAR; +OXYC1TAB63 PO
[2017-04-21 15:33] VITALS: BP 155/103; PULSE 108; RESP 20; TEMP 98.2; O2SAT 100
--- NOTE | 2017-04-21 17:26 | PD ---
HPI Chief Complaint: Cold / Flu Symptoms Time Seen by Provider: 17:14 Travel History International Travel<30 days: No Contact w/Intl Traveler<30days: No Traveled to known affect area: No History of Present Illness HPI 46-year-old male presents to the emergency room for evaluation of productive cough, fevers, chills for the past week. Cough is productive of green sputum. States he wakes up coughing so hard that it causes posttussive emesis. He has night sweats soaking sheets at night but denies any objective fevers. He has been taking pseudoephedrine and cough drops with moderately thin symptoms. Denies earache, sore throat, or nasal congestion. PFSH Past Medical History Autoimmune Disease: No Cancer: No Cardiovascular Problems: Yes Diminished Hearing: No Endocrine: No Genitourinary: No Hypertension: Yes Immune Disorder: No Inguinal Hernia: Yes Musculoskeletal: Yes (Carpal tunnel BILAT) Neurologic: Yes Psychiatric: No Reproductive: No Respiratory: No Migraines: Yes (OCCASSIONAL) Pneumonia: Yes Past Surgical History Abdominal Surgery: No Cardiac Surgery: No Ear Surgery: No Endocrine Surgery: No Eye Surgery: No Genitourinary Surgery: Yes (INGUEINAL HERNIA REPAIR) Gynecologic Surgery: No Oral Surgery: No Thoracic Surgery: No Other Surgery: Yes (r inguinal hernia surgery) Social History Alcohol Use: Yes (rarely) Tobacco Use: Yes (1ppd) Substance Use: No Allergies-Medications (Allergen,Severity, Reaction): Coded Allergies: No Known Allergies (Verified Adverse Reaction, Unknown, 03/26/17) Reported Meds & Prescriptions Reported Meds & Active Scripts Active Oxycodone-Acetaminophen 5-325 mg Tab 1 Tab PO Q4H PRN Review of Systems Except as stated in HPI: all other systems reviewed are Neg Physical Exam Narrative GENERAL: Well-nourished, well-developed female in no acute distress. Afebrile. Ambulatory. SKIN: Focused skin assessment warm/dry. HEAD: Normocephalic. EYES: No scleral icterus. No injection or drainage. ENT: Mucosa pink and moist. Moderate erythema without edema or exudates. No uvular edema. No uvular, palatal, or tonsillar deviation. Airway patent. Nasal turbinates appear normal without nasal blood, purulent drainage or septal hematoma. EARS: Bilateral pinnae and external canals appear within normal limits. Bilateral tympanic membranes without erythema, dullness or perforation. NECK: Supple, trachea midline. No JVD or lymphadenopathy. CARDIOVASCULAR: Regular rate and rhythm without murmurs, gallops, or rubs. RESPIRATORY: Breath sounds equal bilaterally. No accessory muscle use. No crackles, rales, wheezes, or rhonchi. Data Data Last Documented VS Vital Signs Date Time Temp Pulse Resp B/P (MAP) Pulse Ox O2 Delivery O2 Flow Rate FiO2 04/21/17 15:33 98.2 108 20 155/103 (120) 100 Room Air MDM Medical Decision Making Medical Screen Exam Complete: Yes Emergency Medical Condition: Yes Medical Record Reviewed: Yes Differential Diagnosis URI, bronchitis, otitis media, strep, pneumonia Narrative Course 46-year-old male presents to the emergency room for evaluation of productive cough, fevers, and chills for the last week. No objective fevers but patient reports persistent night sweats. He is afebrile and well-appearing in the emergency room. Coughing occasionally. Physical exam reveals moderate erythema of pharynx. Lungs sounds clear and equal bilaterally. Given history of persistent night sweats and productive cough with green sputum patient will be treated empirically for community-acquired pneumonia with azithromycin. Told to follow up with PCP or return for worsening symptoms. He understands and agrees to plan. Diagnosis Primary Impression: Bronchitis Referrals: Primary Care Physician Additional Instructions: Rest and drink plenty of fluids. Take azithromycin as directed, until gone. Follow up with a primary care physician. Return to emergency room for worsening symptoms, as discussed. Med/Other Pt SpecificInfo: Prescription(s) given Disposition: 01 DISCHARGE HOME Condition: Stable Amanda Farrar Apr 21, 2017 17:26
[2017-04-21] MEDS ORDERED: AZIT250T3 PO (17:27)
[2017-04-21 18:08] VITALS: PULSE 68; RESP 18
== END 2017-04-21 17:59 | disposition home or self-care (01) ==
LOC: NEPK 15:32
DX: J40 Bronchitis, not specified as acute or chronic (principal); F17.200 Nicotine dependence, unspecified, uncomplicated
CPT/HCPCS: 99283

== ENCOUNTER 2017-08-02 12:18 | Emergency (ER) | payer SELFPAY ==
[~2017-08-02 12:18] MED LIST changes: +AZIT250T3 PO; -OXYC1TAB63 PO
[2017-08-02 12:48] VITALS: BP 169/84; PULSE 71; RESP 16; TEMP 97.5; O2SAT 96
[2017-08-02] MEDS ORDERED: CEPH-460 PO (16:14)
[2017-08-02] MEDS ORDERED: MUPI2%T TOPICAL (16:14)
--- NOTE | 2017-08-03 11:40 | PD ---
HPI Chief Complaint: Skin Problem Time Seen by Provider: 12:48 Travel History International Travel<30 days: No Contact w/Intl Traveler<30days: No Traveled to known affect area: No History of Present Illness HPI 46-year-old male presents emergency department for evaluation of a pruritic rash all over his body. Patient believes this is from bedbugs. It is been there for a month. He has tried several [id number] creams and ointments with no improvement. Cannot recall any other new exposures. No other symptoms to report. PFSH Past Medical History Autoimmune Disease: No Cancer: No Cardiovascular Problems: Yes Diminished Hearing: No Endocrine: No Genitourinary: No Hypertension: Yes Immune Disorder: No Inguinal Hernia: Yes Musculoskeletal: Yes (Carpal tunnel BILAT) Neurologic: Yes Psychiatric: No Reproductive: No Respiratory: No Migraines: Yes (OCCASSIONAL) Pneumonia: Yes Past Surgical History Abdominal Surgery: No Cardiac Surgery: No Ear Surgery: No Endocrine Surgery: No Eye Surgery: No Genitourinary Surgery: Yes (INGUEINAL HERNIA REPAIR) Gynecologic Surgery: No Oral Surgery: No Thoracic Surgery: No Other Surgery: Yes (r inguinal hernia surgery) Social History Alcohol Use: Yes (rarely) Tobacco Use: Yes (1ppd) Substance Use: No Allergies-Medications (Allergen,Severity, Reaction): Coded Allergies: No Known Allergies (Verified Adverse Reaction, Unknown, 03/26/17) Reported Meds & Prescriptions Reported Meds & Active Scripts Active Bactroban Topical (Mupirocin) 22 Gm Cream 1 Applic TOPICAL BID 10 Days Keflex (Cephalexin) 500 Mg Cap 500 Mg PO Q6H 10 Days Azithromycin 250 Mg Tab 250 Mg PO DIRECTED Take 2 tabs (500 mg) on day 1 then 1 tab daily x 4 days. Review of Systems Except as stated in HPI: all other systems reviewed are Neg Physical Exam Narrative Well-nourished male patient. He is ambulatory with a nonantalgic gait. He appears nontoxic. He does have papular eruption over his trunk and extremities. No pustular vesicle formation. Even respirations. Normal heart rate. No deformities. He speaks clearly. Data Data Last Documented VS Vital Signs Date Time Temp Pulse Resp B/P (MAP) Pulse Ox O2 Delivery O2 Flow Rate FiO2 08/02/17 12:48 97.5 71 16 169/84 (112) 96 MDM Medical Decision Making Medical Screen Exam Complete: Yes Emergency Medical Condition: Yes Medical Record Reviewed: Yes Differential Diagnosis Contact dermatitis versus scabies versus bed bug bites versus local reaction Narrative Course 46-year-old male presents emergency department for evaluation of a pruritic rash. He believes this may be secondary to bedbugs. Patient appears nontoxic. Prior to bed placement, patient chooses to leave. AMA: The risks of leaving against medical advice without further evaluation treatment were discussed with the patient. These risks include cardiac dysfunction, cardiac dysrhythmia, possible heart attack, possible stroke or . The patient indicated understanding of these risks and appeared to have the capacity to make this decision. Diagnosis Primary Impression: Bedbug bite Patient Instructions: General Instructions Departure Forms: Tests/Procedures Disposition: 07 AGAINST MEDICAL ADVICE Condition: Stable Velia Benites Aug 03, 2017 11:39
== END 2017-08-02 14:26 | disposition left against medical advice (07) ==
LOC: NED 12:18
DX: L29.9 Pruritus, unspecified (principal); I10 Essential (primary) hypertension; F17.200 Nicotine dependence, unspecified, uncomplicated; Z79.899 Other long term (current) drug therapy
CPT/HCPCS: 99281

== ENCOUNTER 2017-08-02 15:02 | Emergency (ER) | payer SELFPAY ==
[2017-08-02 15:36] VITALS: BP 150/82; PULSE 68; RESP 18; TEMP 98.6; O2SAT 98
[2017-08-02] MEDS ORDERED: CEPH-460 PO (16:14)
[2017-08-02] MEDS ORDERED: MUPI2%T TOPICAL (16:14)
--- NOTE | 2017-08-02 16:21 | PD ---
HPI Chief Complaint: Skin Problem Time Seen by Provider: 16:08 Travel History International Travel<30 days: No Contact w/Intl Traveler<30days: No Traveled to known affect area: No History of Present Illness HPI 46-year-old male presents to the ED for evaluation of 3 week history of pruritic rash of bilateral hips, top of the left foot. Patient can identify no new exposures. He lives with several roommates and no one else has these symptoms. Denies fever, chills, nausea, vomiting, breathing difficulties, wheezing, closed throat sensation. He states that there are "little black bugs " in the rash. He states that when he picks them off they just come right back. Patient denies IV drug use. He denies history of MRSA. No treatment attempted at home. PFSH Past Medical History Autoimmune Disease: No Cancer: No Cardiovascular Problems: Yes Diminished Hearing: No Endocrine: No Genitourinary: No Hypertension: Yes Immune Disorder: No Inguinal Hernia: Yes Musculoskeletal: Yes (Carpal tunnel BILAT) Neurologic: Yes Psychiatric: No Reproductive: No Respiratory: No Migraines: Yes (OCCASSIONAL) Pneumonia: Yes Past Surgical History Abdominal Surgery: No Cardiac Surgery: No Ear Surgery: No Endocrine Surgery: No Eye Surgery: No Genitourinary Surgery: Yes (INGUEINAL HERNIA REPAIR) Gynecologic Surgery: No Oral Surgery: No Thoracic Surgery: No Other Surgery: Yes (r inguinal hernia surgery) Social History Alcohol Use: Yes (rarely) Tobacco Use: Yes (1ppd) Substance Use: No Allergies-Medications (Allergen,Severity, Reaction): Coded Allergies: No Known Allergies (Verified Adverse Reaction, Unknown, 03/26/17) Reported Meds & Prescriptions Reported Meds & Active Scripts Active Bactroban Topical (Mupirocin) 22 Gm Cream 1 Applic TOPICAL BID 10 Days Keflex (Cephalexin) 500 Mg Cap 500 Mg PO Q6H 10 Days Azithromycin 250 Mg Tab 250 Mg PO DIRECTED Take 2 tabs (500 mg) on day 1 then 1 tab daily x 4 days. Review of Systems Except as stated in HPI: all other systems reviewed are Neg Physical Exam Narrative GENERAL: Well-nourished, well-developed white male in no acute distress. SKIN: Focused skin assessment warm/dry. Scattered, mildly erythematous maculopapular rash of bilateral anterior lateral hips. Her several small open areas with localized erythema. No cellulitic changes. No LAD in the groin. Rash on the dorsal aspect of the left foot. HEAD: Normocephalic. EYES: No scleral icterus. No injection or drainage. Pinpoint pupils bilaterally. NECK: Supple, trachea midline. No JVD or lymphadenopathy. CARDIOVASCULAR: Regular rate and rhythm without murmurs, gallops, or rubs. RESPIRATORY: Breath sounds clear and equal bilaterally. No accessory muscle use. GASTROINTESTINAL: Abdomen soft, non-tender, nondistended. MUSCULOSKELETAL: No cyanosis, or edema. BACK: Nontender without obvious deformity. No CVA tenderness. Data Data Last Documented VS Vital Signs Date Time Temp Pulse Resp B/P (MAP) Pulse Ox O2 Delivery O2 Flow Rate FiO2 08/02/17 15:36 98.6 68 18 150/82 (104) 98 MDM Medical Decision Making Medical Screen Exam Complete: Yes Emergency Medical Condition: Yes Differential Diagnosis Insect bite versus contact dermatitis versus secondary cellulitis versus other Narrative Course 46-year-old male presents to the ED for evaluation of 3 week history of pruritic rash of bilateral hips, top of the left foot. Patient can identify no new exposures. He lives with several roommates and no one else has these symptoms. Denies fever, chills, nausea, vomiting. He states that there are "little black bugs" in the rash. He states that when he picks them off they just come right back. Vitals reviewed. On exam there is a scattered, erythematous, blanching, maculopapular rash in bilateral hips and on the dorsal aspect of the left foot. Several small areas that are open wounds with localized erythema. No LAD or cellulitic changes noted. Concern for secondary infection. Patient's prescribed Bactroban ointment and 500 mg Keflex 4 times a day 10 days. He is instructed to keep the wounds clean, dry, covered, follow with the catcher helper, return for worsening symptoms. He is stable and discharged home. Diagnosis Primary Impression: Pruritic erythematous rash Referrals: [employer] Additional Instructions: Keep the rash clean, dry and covered. Apply ointment twice a day as prescribed. Begin the antibiotics today and take them until every pill is gone. Use OTC Benadryl as directed on the label, as needed to reduce itching. Take cool showers to avoid worsening the rash. Follow with the catcher helper. Return to the ED for worsening symptoms or any urgent or emergent medical condition. Med/Other Pt SpecificInfo: Prescription(s) given Scripts Mupirocin Topical (Bactroban Topical) 22 Gm Cream 1 APPLIC TOPICAL BID for Mgmt Bacterial Infection for 10 Days, #1 TUBE 0 Refills Prov: Paul Caldwell MD 08/02/17 Cephalexin (Keflex) 500 Mg Cap 500 MG PO Q6H for Infection for 10 Days, #40 CAP 0 Refills Prov: Paul Caldwell MD 08/02/17 Disposition: 01 DISCHARGE HOME Condition: Stable Sherry Otero Aug 02, 2017 16:21
== END 2017-08-02 16:24 | disposition home or self-care (01) ==
LOC: NED 15:02 → NEPK 16:24
DX: L29.9 Pruritus, unspecified (principal); I10 Essential (primary) hypertension; G56.03 Carpal tunnel syndrome, bilateral upper limbs; F17.200 Nicotine dependence, unspecified, uncomplicated
CPT/HCPCS: 99283

== ENCOUNTER 2018-01-25 23:35 | Inpatient (IN) ==
[2018-01-25] MEDS ORDERED: ceFAZolin 2 GM Premix Inj 2 GM/50 ML PIGGYBACK IV.SIG ONE (23:54)
[2018-01-25] MEDS ORDERED: Diphtheria/Tetanus/Pertussis Vaccine Inj 0.5 ML Syringe IM ONE (23:55)
[2018-01-26] MEDS ORDERED: Sod Chloride 0.9% Inj 1,000 ML IV.SIG ONE (00:26)
[2018-01-26] MEDS ORDERED: Ketorolac Inj 30 MG/ML (IVP) Vial IV.PUSH ONE (00:26)
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
[2018-01-26 00:29] LABS: Baso # (Auto) 0.1 th/mm3 (0.0-0.2); Baso % (Auto) 1.7 % (0.0-2.0); Eos # (Auto) 0.2 th/mm3 (0.0-0.4); Eos % (Auto) 3.5 % (0.0-4.0); Hematocrit 41.1 % (39.0-51.0); Hemoglobin 14.1 gm/dL (13.0-17.0); Lymph # (Auto) 1.7 th/mm3 (1.0-4.8); Lymph % (Auto) 24.1 % (9.0-44.0); Mean Corpuscular HGB Conc 34.3 % (32.0-36.0); Mean Corpuscular Hemoglobin 30.4 pg (27.0-34.0); Mean Corpuscular Volume 88.5 fL (80.0-100.0); Mean Platelet Volume 9.3 fL (7.0-11.0); Mono # (Auto) 0.6 th/mm3 (0.0-0.9); Mono % (Auto) 8.1 % (0.0-8.0); Neut # (Auto) 4.3 th/mm3 (1.8-7.7); Neut % (Auto) 62.6 % (16.0-70.0); Platelet Count 195 th/mm3 (150-450); Red Blood Count 4.64 mil/mm3 (4.50-5.90); Red Cell Distribution Width 14.1 % (11.6-17.2); White Blood Count 6.9 th/mm3 (4.0-11.0)
[2018-01-26 00:45] LABS: Albumin 3.4 g/dL (3.4-5.0); Anion Gap 9 meq/L (5-15); Aspartate Aminotransferase 21 U/L (15-37); Blood Urea Nitrogen 14 mg/dL (7-18); Calcium 8.7 mg/dL (8.5-10.1); Carbon Dioxide 29.2 meq/L (21.0-32.0); Chloride 107 meq/L (98-107); Glomerular Filtration Rate 56 mL/min (>89); Glucose,Random 121 mg/dL (74-106); Potassium 3.3 meq/L (3.5-5.1); Sodium 145 meq/L (136-145)
[2018-01-26 00:50] LABS: Alanine Aminotransferase 33 U/L (12-78); Alkaline Phosphatase 70 U/L (45-117)
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
[2018-01-26] MEDS ORDERED: Morphine Inj 4 MG/ML Vial IV.PUSH ONE ×2 (02:34→04:13)
[2018-01-26] MEDS ORDERED: Gentamicin Inj 80 MG in Sodium Chlor 0.9% Inj 100 ML IV.SIG ONE (04:30)
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
[2018-01-26] MEDS ORDERED: Morphine Inj 4 MG/ML Vial IM ONE (09:49)
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
[2018-01-26] MEDS ORDERED: Bisacodyl 10 MG Supp RECTAL PRN (10:42)
[2018-01-26] MEDS ORDERED: Acetaminophen 325 MG Tablet PO PRN ×2 (10:42→11:45)
[2018-01-26] MEDS ORDERED: Haloperidol Inj 5 MG/ML Ampul IV.PUSH PRN (10:51)
[2018-01-26] MEDS ORDERED: LORazepam 1 MG Tablet PO PRN (10:51)
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
--- NOTE | 2018-01-26 11:19 | XR ---
EXAM DATE: 01/26/2018 11:12 AM EDT AGE/SEX: 47 years / Male INDICATIONS: Evaluate for pneumonia, pneumothorax, or communicable disease. Pre op for left elbow dumont rgery. CLINICAL DATA: This is the patient's initial encounter. Patient reports that signs and symptoms have been present for 1 day and indicates a pain score of 0/10. MEDICAL/SURGICAL HISTORY: . smoker, high blood pressure None. COMPARISON: [facility] – [place], CHEST SINGLE AP, 11/17/2016. . FINDINGS: PA and lateral views of the chest demonstrate the lungs to be symmetrically aerated without evidence of mass, infiltrate or effusion. The cardiomediastinal contours are unremarkable. Osseous structures are intact. CONCLUSION: No evidence of acute cardiopulmonary process. Electronically signed by: Samuel Zamudio MD 01/26/2018 11:18 AM EDT
[2018-01-26 12:02] LABS: INR 1.1 Ratio; Prothrombin Time 10.7 sec (9.8-11.6)
[2018-01-26] MEDS: Sod Chloride 0.9% Inj 1,000 ML IV.CONT SCH ×2 (12:08→19:38)
[2018-01-26] MEDS ORDERED: Naloxone Inj 0.4 MG/ML Vial IV.PUSH PRN (12:34)
[2018-01-26 12:43] LABS: Bacteria,Urine Occasional /hpf; Bilirubin,Urine Negative (Negative); Clarity,Urine Hazy (Clear); Color,Urine Yellow (Yellw/Straw); Glucose,Urine (UA) Negative (Negative); Leukocyte Esterase,Urine Negative (Negative); Nitrite,Urine Negative (Negative); Specific Gravity,Urine 1.012 (1.002-1.035)
[2018-01-26 12:48] LABS: Amphetamine Screen,Urine Neg (Neg); Barbiturate Screen,Urine Neg (Neg); Cannabinoid Screen,Urine Neg (Neg); Cocaine Screen,Urine Pos (Neg)
[2018-01-26 12:50] LABS: Opiate Screen,Urine Pos (Neg)
[2018-01-26] MEDS: Morphine Inj 4 MG/ML Vial IV.PUSH PRN ×2 (15:24→20:03)
[2018-01-26] MEDS: Clotrimazole 1% Cream 15 GM Tube TOPICAL SCH ×2 (15:25→20:03)
[2018-01-26] MEDS ORDERED: Zolpidem Tartrate 5 MG Tablet PO PRN (21:00)
[2018-01-27] MEDS: Morphine Inj 4 MG/ML Vial IV.PUSH PRN ×4 (01:01→21:22)
[2018-01-27] MEDS: Sod Chloride 0.9% Inj 1,000 ML IV.CONT SCH ×2 (03:14→15:26)
[2018-01-27 06:01] LABS: Baso # (Auto) 0.1 th/mm3 (0.0-0.2); Eos # (Auto) 0.3 th/mm3 (0.0-0.4); Hematocrit 38.6 % (39.0-51.0); Hemoglobin 13.3 gm/dL (13.0-17.0); Lymph # (Auto) 1.6 th/mm3 (1.0-4.8); Lymph % (Auto) 24.2 % (9.0-44.0); Mean Corpuscular HGB Conc 34.3 % (32.0-36.0); Mean Corpuscular Hemoglobin 30.3 pg (27.0-34.0); Mean Corpuscular Volume 88.4 fL (80.0-100.0); Mean Platelet Volume 9.5 fL (7.0-11.0); Mono # (Auto) 0.5 th/mm3 (0.0-0.9); Mono % (Auto) 8.4 % (0.0-8.0); Neut # (Auto) 4.1 th/mm3 (1.8-7.7); Neut % (Auto) 62.4 % (16.0-70.0); Platelet Count 160 th/mm3 (150-450); Red Blood Count 4.37 mil/mm3 (4.50-5.90); Red Cell Distribution Width 14.5 % (11.6-17.2); White Blood Count 6.5 th/mm3 (4.0-11.0)
[2018-01-27 06:02] LABS: Prothrombin Time 10.5 sec (9.8-11.6)
[2018-01-27 06:34] LABS: Alanine Aminotransferase 24 U/L (12-78); Albumin 2.5 g/dL (3.4-5.0); Alkaline Phosphatase 62 U/L (45-117); Anion Gap 8 meq/L (5-15); Aspartate Aminotransferase 18 U/L (15-37); Blood Urea Nitrogen 9 mg/dL (7-18); Calcium 7.8 mg/dL (8.5-10.1); Carbon Dioxide 26.5 meq/L (21.0-32.0); Chloride 109 meq/L (98-107); Glomerular Filtration Rate 87 mL/min (>89); Glucose,Random 90 mg/dL (74-106); Potassium 3.9 meq/L (3.5-5.1); Sodium 143 meq/L (136-145); Total Protein 5.7 g/dL (6.4-8.2)
[2018-01-27] MEDS ORDERED: Chlorhexidine Gluconate 2% 1 Pack (2 Cloths) TOPICAL ONE (08:00)
[2018-01-27] MEDS ORDERED: Metoprolol Tartrate 25 MG Tablet PO ONE (08:00)
[2018-01-27] MEDS ORDERED: Sodium Chlor 0.9% Inj 500 ML IV.CONT ONE (08:00)
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
[2018-01-27] MEDS ORDERED: Glycopyrrolate Inj 1 MG/5 ML Syringe IV.PUSH ONE (11:53)
[2018-01-27] MEDS ORDERED: Lidocaine PF 1% Inj 5 ML Syringe INFILTRATN ONE (11:53)
[2018-01-27] MEDS ORDERED: Neostigmine Inj 5 MG/5 ML Syringe IV.PUSH ONE (11:53)
[2018-01-27] MEDS ORDERED: *morphine SULFATE 4 MG/ML PERIprocedure ONLY ONE ×3 (14:20→14:44)
[2018-01-27] MEDS ORDERED: fentaNYL Citrate Inj 100 MCG/2 ML Ampul ONE (14:23)
[2018-01-27] MEDS ORDERED: Morphine Inj 4 MG/ML Vial ONE (14:24)
[2018-01-27] MEDS: Senna/Docusate Sodium 8.6/50 MG Tablet PO SCH ×2 (15:04→21:22)
[2018-01-27] MEDS ORDERED: HYDROmorphone PF Inj 2 MG/ML Vial ONE (15:06)
[2018-01-27] MEDS: Clotrimazole 1% Cream 15 GM Tube TOPICAL SCH ×2 (15:29→23:00)
--- NOTE | 2018-01-27 18:57 | ECG ---
Date Performed: 01/26/2018 Time Performed: 19:18:42 PTAGE: 47 years EKG: Sinus rhythm NORMAL ECG NO PREVIOUS TRACING DOCTOR: Kaushik Mukherjee Interpretating Date/Time 01/27/2018 18:52:01
[2018-01-27] MEDS: Ketorolac Inj 30 MG/ML (IVP) Vial IV.PUSH SCH (19:45)
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
[2018-01-27] MEDS: ceFAZolin 2 GM Premix Inj 2 GM/50 ML PIGGYBACK IV.SIG SCH (22:43)
[2018-01-28] MEDS: Ketorolac Inj 30 MG/ML (IVP) Vial IV.PUSH SCH ×3 (01:04→14:27)
[2018-01-28] MEDS: Morphine Inj 4 MG/ML Vial IV.PUSH PRN ×3 (01:05→09:10)
[2018-01-28 01:07] VITALS: RESP 18
[2018-01-28] MEDS: ceFAZolin 2 GM Premix Inj 2 GM/50 ML PIGGYBACK IV.SIG SCH ×2 (05:30→12:27)
[2018-01-28] MEDS: Sod Chloride 0.9% Inj 1,000 ML IV.CONT SCH ×2 (06:12→12:30)
[2018-01-28 08:29] LABS: Baso # (Auto) 0.1 th/mm3 (0.0-0.2); Baso % (Auto) 0.7 % (0.0-2.0); Eos # (Auto) 0.1 th/mm3 (0.0-0.4); Eos % (Auto) 1.5 % (0.0-4.0); Hematocrit 41.2 % (39.0-51.0); Lymph # (Auto) 1.7 th/mm3 (1.0-4.8); Lymph % (Auto) 20.9 % (9.0-44.0); Mean Corpuscular HGB Conc 33.9 % (32.0-36.0); Mean Corpuscular Hemoglobin 30.2 pg (27.0-34.0); Mean Corpuscular Volume 89.3 fL (80.0-100.0); Mean Platelet Volume 10.2 fL (7.0-11.0); Mono # (Auto) 0.6 th/mm3 (0.0-0.9); Mono % (Auto) 6.8 % (0.0-8.0); Neut # (Auto) 5.8 th/mm3 (1.8-7.7); Neut % (Auto) 70.1 % (16.0-70.0); Platelet Count 160 th/mm3 (150-450); Red Blood Count 4.62 mil/mm3 (4.50-5.90); Red Cell Distribution Width 14.6 % (11.6-17.2); White Blood Count 8.3 th/mm3 (4.0-11.0)
[2018-01-28 08:54] LABS: Alanine Aminotransferase 23 U/L (12-78); Albumin 2.7 g/dL (3.4-5.0); Alkaline Phosphatase 69 U/L (45-117); Anion Gap 8 meq/L (5-15); Aspartate Aminotransferase 26 U/L (15-37); Blood Urea Nitrogen 10 mg/dL (7-18); Calcium 8.7 mg/dL (8.5-10.1); Carbon Dioxide 29.8 meq/L (21.0-32.0); Chloride 102 meq/L (98-107); Glomerular Filtration Rate 76 mL/min (>89); Glucose,Random 131 mg/dL (74-106); Potassium 4.1 meq/L (3.5-5.1); Sodium 140 meq/L (136-145); Total Protein 6.4 g/dL (6.4-8.2)
[2018-01-28] MEDS: Clotrimazole 1% Cream 15 GM Tube TOPICAL SCH (10:20)
[2018-01-28] MEDS: Senna/Docusate Sodium 8.6/50 MG Tablet PO SCH (10:20)
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
[2018-01-28 12:02] VITALS: BP 149/68; PULSE 72; TEMP 97.8; O2SAT 97
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
== END 2018-01-28 16:10 | disposition home or self-care (01) ==
LOC: NEPC 23:35 → NEDA 23:35 → N06 01-26 12:03
PROVIDERS: ADMIT Family Medicine; ATTEND Family Medicine
PROC: ORIFELB (2018-01-27 11:53)